=== PATIENT | female | born 1965 | race Caucasian/White ===

== ENCOUNTER 2016-11-15 03:55 | Emergency (ER) | payer OTHER ==
--- NOTE | 2016-11-15 05:27 | ED CLINICAL REPORT ---
Clinical Report - Physicians/Mid Levels [facility] [address] [place] [address] 11/15/2016 3:58 Patient: RANDI RAYA Time Seen: 04:10. Arrived- By private vehicle. Historian- patient. HISTORY OF PRESENT ILLNESS Chief Complaint: COUGH and FEVER. RUNNY NOSE and EAR ACHE. This started several weeks ago and is still present. The illness is described as moderate. The patient has had scant amounts of sputum, a cough, nasal congestion, a subjective fever and a nasal discharge. She has had ear pain. No difficulty breathing, chest discomfort or pain, muscle aches or chills. No sore throat, hoarseness, sinus pressure or sinus drainage. Additional history - The patient has had contact with a sick individual. Similar symptoms previously: Occasionally. Recent medical care: Not recently seen/assessed. REVIEW OF SYSTEMS No headache, eye discomfort, nausea, vomiting or diarrhea. No abdominal pain, hay fever, pedal edema, calf pain or difficulty with urination. No skin rash, enlarged lymph nodes or joint pain. All systems otherwise negative, except as recorded above. PAST HISTORY Problems: Polysubstance abuse. Pyloric Stenosis, Infantile. MRSA Infection. Additional Surgeries: Appendectomy. Cholecystectomy. . Hysterectomy. Medications: Francine-[place] Plus Cold & Flu Oral, prn. Excedrin, prn. Allergies: Zosyn. Definite Moderate (cardiac dysrhymia). SOCIAL HISTORY Smoker- current status unknown. History of drug use: heroin, methamphetamines. No alcohol use. ADDITIONAL NOTES The nursing notes have been reviewed. PHYSICAL EXAM Vital Signs: 11/15/2016 04:03 BP: 126/59. HR: 95. RR: 20. O2 saturation: 97%. Temp: 99.5 F. Pain level now: 5/10. Have been reviewed. Appearance: Alert. No acute distress. (Pt appears mildly uncomfortable.). Eyes: Pupils equal, round and reactive to light. Eyes normal inspection. ENT: Nose normal. Neck: Normal inspection. Neck supple. CVS: Normal heart rate and rhythm. Heart sounds normal. Pulses normal. Respiratory: No respiratory distress. Breath sounds normal. Abdomen: Soft and nontender. Back: Normal inspection. No CVA tenderness. Skin: Skin warm and dry. Normal skin color. No rash. Normal skin turgor. Extremities: Extremities exhibit normal ROM. No lower extremity edema. Neuro: Oriented X 3. No motor deficit. No sensory deficit. LABS, X-RAYS, AND EKG Chest X-ray: Small, patchy infiltrate in the right lower lobe. Consistent with pneumonia. Normal heart size. Mediastinum normal. Great vessels normal. Soft tissues normal. No fracture. No bony lesion present. Views: PA and lateral. Technique: good. The X-rays were independently viewed by me, interpreted by the radiologist and contemporaneously by me and discussed with the radiologist. Prior films were not available for comparison. Laboratory Tests: UA-Culture if indicated: (CONNOR: 11/15/2016 04:42) ( [facility] 11/15/2016 05:07) Final results Test Result Flag Units (Reference) URINE COLOR YELLOW URINE APPEARANCE SL CLOUDY URINE GLUCOSE NEGATIVE (NEGATIVE) URINE BILIRUBIN NEGATIVE (NEGATIVE) URINE KETONE NEGATIVE (NEGATIVE) URINE SPECIFIC GRAVITY 1.025 (1.010-1.030) URINE PH 6.0 (5.0-8.0) URINE PROTEIN NEGATIVE (NEGATIVE) URINE UROBILINOGEN 0.2 EU/dL (0.2-1.0) URINE NITRITE POSITIVE (NEGATIVE) URINE BLOOD NEGATIVE (NEGATIVE) URINE LEUK ESTERASE POSITIVE (NEGATIVE) URINE RBC 0-1 rbc/hpf (0-1) URINE WBC 5-10 wbc/hpf (0-1) URINE EPITHELIAL CELLS 1-3 EPI/hpf (0-5) URINE BACTERIA MANY (4+) (NONE SEEN) URINE COMMENT CULTURE INDICATED URINE CULTURES ARE SET-UP BASED ON THE FOLLOWING CRITERIA:POSITIVE NITRITEPOSITIVE LEUKOCYTE ESTERASEGREATER THAN 10 WHITE BLOOD CELLSMODERATE (2+) OR GREATER BACTERIA Rapid Influenza Screen: (CONNOR: 11/15/2016 04:20) ( [facility] 11/15/2016 05:10) Final results SPECIMEN DESCRIPTION: SWAB Test Result Flag Units (Reference) RAPID INFLUENZA SCREEN DATE: 11/15/16 INFLUENZA A: NEGATIVE SCREEN FOR INFLUENZA A INFLUENZA B: NEGATIVE SCREEN FOR INFLUENZA B . Pulse Oximetry: 11/15/2016 04:03 O2 saturation: 97%. (FIO2 - room air). Interpretation: normal. PROGRESS AND PROCEDURES Course of Care: PT was worked up for her sx, and found to have a small pneumonia and a mild UTI. She was treated with Rocephin and Zithromax for this. Pt was not febrile, and no signs of sepsis were present. Patient counseled in person regarding the patient's stable condition, test results, diagnosis and need for follow-up. Concerns were addressed. Old medical records reviewed. Disposition: Discharged. Condition: stable. CLINICAL IMPRESSION Bacterial pneumonia. Vital signs recorded and reviewed; empiric antibiotics given in the ED. No hypoxemia, respiratory failure or sepsis. Substance abuse problems: abuse of opiates and methamphetamine. Acute urinary tract infection with cystitis associated with indwelling catheter. INSTRUCTIONS Drink plenty of fluids. Warnings: GENERAL WARNINGS: Return or contact your physician immediately if your condition worsens or changes unexpectedly, if not improving as expected, or if other problems arise. Your Current Medications: CONTINUE TAKING THE FOLLOWING MEDICATIONS: Francine-[place] Plus Cold & Flu Oral : prn. Excedrin* : prn. Prescription Medications: Levaquin 750 mg: take 1 tab orally every day for 14 days. No refills. Substitution is permissible. Follow-up: Follow up with your doctor in seven days if not better. Understanding of the discharge instructions verbalized by patient. (Electronically signed by Kyung Morrison MD 11/20/2016 12:05)
--- NOTE | 2016-11-15 05:28 | ED ORDER SUMMARY ---
..... Patient: RANDI RAYA OrderSheet [facility] VisitID: [id number] [address] [place] [address] 51y, F Registration Date/Time: 11/15/2016 ORDER SHEET Weight: 74.8 kg (stated) Allergies: Zosyn GENERAL ORDERS: Rapid Influenza Screen (Nasal Pharyngeal) (swab) Urgent (04:39 11/15/2016 Ben VALENCIA) (Ack 4:41 AMcQuoid ER Tech1) (4:41 AMcQuoid ER Tech1) Chest 2V Urgent (04:39 11/15/2016 Ben VALENCIA) (Ack 4:41 AMcQuoid ER Tech1) (4:54 Ginger) UA-Culture if indicated Urgent (04:39 11/15/2016 Ben VALENCIA) (Ack 4:41 AMcQuoid ER Tech1) (4:45 AMcQuoid ER Tech1) MEDICATION ORDERS: Rocephin IM 2 gm (NOW) (04:53 11/15/2016 Ben VALENCIA) (5:30 Ruben R.N.) Zithromax PO 500 mg (NOW) (04:53 11/15/2016 Ben VALENCIA) (5:29 Ruben R.N.) IV FLUIDS: ORDER SHEET NOTES: [Electronically signed by Deni Garrett R.N. (05:51 11/15/2016)] [Electronically signed by Kyung Morrison MD (12:05 11/20/2016)] [Electronically locked/signed by Deni Garrett R.N. (05:51 11/15/2016)]
--- NOTE | 2016-11-15 05:28 | ED NURSING NOTES ---
Clinical Report - Nurses [facility] [address] [place] [address] 11/15/2016 3:58 [id number] Triage time 04:00 Nov 15 2016. Acuity: LEVEL 3. Chief Complaint: FEVER and "NOT FEELING WELL" and FATIGUE and LACK OF APPETITE (ear aches). Alert. AGNES COMA SCORE: Levan Coma Scale: 15- eyes open spontaneously (4); best verbal response- oriented x 4 (5); best motor response- obeys commands (6). --04:17 Deni Garrett R.N. 04:03 11/15/16. BP: 126/59. HR: 95. RR: 20. O2 saturation: 97% on room air. Temp: 99.5 F (oral). Pain level now: 5/10. Additional comments: (L) leg pain. --04:17 Deni Garrett R.N. Weight: 74.8 kg stated. Height/Length: 67 inches Per Patient. BMI: 25.9. --04:07 Deni Garrett R.N. Medications Excedrin, prn. --04:06 Deni Garrett R.N. Francine-[place] Plus Cold & Flu Oral, prn. --04:06 Deni Garrett R.N. Allergies Zosyn. Definite Moderate (cardiac dysrhymia) --04:07 Deni Garrett R.N. Medication/allergy information source: the patient. --04:17 Deni Garrett R.N. History Arrived by private vehicle. Historian: patient. Accompanied by friend. Primary physician (Irish Mcgee). ( cold symptoms for the last 4 weeks associated with a fever, cough and ear aches.). PAST MEDICAL HX: Immunizations: up-to-date. The patient has had a hysterectomy. SOCIAL HX: Heavy tobacco smoker (cigarette)- less than 1 pack per day. History of drug use: heroin, methamphetamines. (last used yesterday). No alcohol use. No recent travel. The patient was exposed to influenza, chicken pox and MRSA. Has had symptoms of fever, fatigue and cough greater than 2 weeks. ABUSE ASSESSMENT: No report of abuse. FALL RISK ASSESSMENT: Fall risk assessment completed. No fall risk identified. NUTRITIONAL RISK ASSESSMENT: The nutritional risk assessment revealed no deficiencies. FUNCTIONAL ASSESSMENT: Functional assessment: no impairments noted. LEARNING NEEDS ASSESSMENT: The learning needs assessment revealed no barriers. SKIN INTEGRITY ASSESSMENT: Skin integrity risk assessment completed. No skin integrity risk identified. --04:17 Deni Garrett R.N. PROBLEMS: Pyloric Stenosis, Infantile. MRSA Infection. --04:11 Deni Garrett R.N. ADDITIONAL SURGERIES: Appendectomy. Cholecystectomy. . Hysterectomy. --04:11 Deni Garrett R.N. Interventions ID band on patient. To treatment room. --04:17 Deni Garrett R.N. PHYSICAL ASSESSMENT Ambulatory to room. GENERAL / NEURO / PSYCH: Alert. Oriented X 4. HEENT: Mucous membranes are pink. RESPIRATORY: Respirations not labored. Cough. CVS: Pulses within normal limits. GI / : Abdomen soft and nontender and normal bowel sounds. SKIN: Skin intact. Skin is warm and dry. Normal skin turgor. --04:17 Deni Garrett R.N. NURSING PROGRESS NOTES Patient gowned. Reassurance given. Patient identifiers checked. Call light placed in reach. Side rails up x 1. Bed placed in lowest position. Brakes of bed on. Patient ready for evaluation- chart flagged and ED physician notified. --04:17 Deni Garrett R.N. 05:14 11/15/2016 Zithromax PO Tablets 500 mg given. Allergies verified and confirmed 5 rights. --05:29 Deni Garrett R.N. 05:20 11/15/2016 Rocephin (CefTRIAXone Sodium) IM 2 gm given. Given in the right ventral gluteus and left ventral gluteus (split dose). Allergies verified and confirmed 5 rights. --05:30 Deni Garrett R.N. 04:45 11/15/16. BP: 122/65. HR: 86. RR: 16. O2 saturation: 98% on room air. Pain level now: 10. Additional comments: Chest discomfort. --05:44 Deni Garrett R.N. DISPOSITION / DISCHARGE 05:30 11/15/16. BP: 113/58. HR: 83. RR: 18. O2 saturation: 99% on non-rebreather. Temp: 98.8 F. Pain level now: 09/13. Additional comments: Chest discomfort. --05:48 Deni Garrett R.N. Departure time: 0535. --05:48 Deni Garrett R.N. 05:35. Condition at departure: improved. No learning barriers present. Discharge instructions provided and reviewed with the patient. Reviewed medication(s) dosing and course information (prescription given to pt). Reviewed referral to family practice. Reviewed need to stop smoking- provided smoking cessation counseling (encoueaged to stop smoking). Patient verbalized understanding. Written instructions provided in Greek. The patient was discharged by the physician. She was discharged home and accompanied by credit union examiner. She left the Emergency Department ambulatory and via private vehicle. Byproducts Maker driving. FALL RISK ASSESSMENT: Fall risk assessment completed. No fall risk identified. --05:50 Deni Garrett R.N. Locked/Released at 11/15/2016 5:51 by Deni Garrett R.N.
--- NOTE | 2016-11-15 05:28 | ED NURSING NOTES ---
Clinical Report - Nurses [facility] [address] [place] [address] 11/15/2016 3:58 [id number] Triage time 04:00 Nov 15 2016. Acuity: LEVEL 3. Chief Complaint: FEVER and "NOT FEELING WELL" and FATIGUE and LACK OF APPETITE (ear aches). Alert. AGNES COMA SCORE: [place] Coma Scale: 15- eyes open spontaneously (4); best verbal response- oriented x 4 (5); best motor response- obeys commands (6). --04:17 Deni Garrett R.N. 04:03 11/15/16. BP: 126/59. HR: 95. RR: 20. O2 saturation: 97% on room air. Temp: 99.5 F (oral). Pain level now: 5/10. Additional comments: (L) leg pain. --04:17 Deni Garrett R.N. Weight: 74.8 kg stated. Height/Length: 67 inches Per Patient. BMI: 25.9. --04:07 Deni Garrett R.N. Medications Excedrin, prn. --04:06 Deni Garrett R.N. Francine-[place] Plus Cold & Flu Oral, prn. --04:06 Deni Garrett R.N. Allergies Zosyn. Definite Moderate (cardiac dysrhymia) --04:07 Deni Garrett R.N. Medication/allergy information source: the patient. --04:17 Deni Garrett R.N. History Arrived by private vehicle. Historian: patient. Accompanied by friend. Primary physician (Irish Mcgee). ( cold symptoms for the last 4 weeks associated with a fever, cough and ear aches.). PAST MEDICAL HX: Immunizations: up-to-date. The patient has had a hysterectomy. SOCIAL HX: Heavy tobacco smoker (cigarette)- less than 1 pack per day. History of drug use: heroin, methamphetamines. (last used yesterday). No alcohol use. No recent travel. The patient was exposed to influenza, chicken pox and MRSA. Has had symptoms of fever, fatigue and cough greater than 2 weeks. ABUSE ASSESSMENT: No report of abuse. FALL RISK ASSESSMENT: Fall risk assessment completed. No fall risk identified. NUTRITIONAL RISK ASSESSMENT: The nutritional risk assessment revealed no deficiencies. FUNCTIONAL ASSESSMENT: Functional assessment: no impairments noted. LEARNING NEEDS ASSESSMENT: The learning needs assessment revealed no barriers. SKIN INTEGRITY ASSESSMENT: Skin integrity risk assessment completed. No skin integrity risk identified. --04:17 Deni Garrett R.N. PROBLEMS: Pyloric Stenosis, Infantile. MRSA Infection. --04:11 Deni Garrett R.N. ADDITIONAL SURGERIES: Appendectomy. Cholecystectomy. . Hysterectomy. --04:11 Deni Garrett R.N. Interventions ID band on patient. To treatment room. --04:17 Deni Garrett R.N. PHYSICAL ASSESSMENT Ambulatory to room. GENERAL / NEURO / PSYCH: Alert. Oriented X 4. HEENT: Mucous membranes are pink. RESPIRATORY: Respirations not labored. Cough. CVS: Pulses within normal limits. GI / : Abdomen soft and nontender and normal bowel sounds. SKIN: Skin intact. Skin is warm and dry. Normal skin turgor. --04:17 Deni Garrett R.N. NURSING PROGRESS NOTES Patient gowned. Reassurance given. Patient identifiers checked. Call light placed in reach. Side rails up x 1. Bed placed in lowest position. Brakes of bed on. Patient ready for evaluation- chart flagged and ED physician notified. --04:17 Deni Garrett R.N. 05:14 11/15/2016 Zithromax PO Tablets 500 mg given. Allergies verified and confirmed 5 rights. --05:29 Deni Garrett R.N. 05:20 11/15/2016 Rocephin (CefTRIAXone Sodium) IM 2 gm given. Given in the right ventral gluteus and left ventral gluteus (split dose). Allergies verified and confirmed 5 rights. --05:30 Deni Garrett R.N. 04:45 11/15/16. BP: 122/65. HR: 86. RR: 16. O2 saturation: 98% on room air. Pain level now: 10. Additional comments: Chest discomfort. --05:44 Deni Garrett R.N. DISPOSITION / DISCHARGE 05:30 11/15/16. BP: 113/58. HR: 83. RR: 18. O2 saturation: 99% on non-rebreather. Temp: 98.8 F. Pain level now: 09/13. Additional comments: Chest discomfort. --05:48 Deni Garrett R.N. Departure time: 0535. --05:48 Deni Garrett R.N. 05:35. Condition at departure: improved. No learning barriers present. Discharge instructions provided and reviewed with the patient. Reviewed medication(s) dosing and course information (prescription given to pt). Reviewed referral to family practice. Reviewed need to stop smoking- provided smoking cessation counseling (encoueaged to stop smoking). Patient verbalized understanding. Written instructions provided in Qatari. The patient was discharged by the physician. She was discharged home and accompanied by balcony worker. She left the Emergency Department ambulatory and via private vehicle. Well Testing Operator driving. FALL RISK ASSESSMENT: Fall risk assessment completed. No fall risk identified. --05:50 Deni Garrett R.N. Locked/Released at 11/15/2016 5:51 by Deni Garrett R.N.
--- NOTE | 2016-11-15 05:28 | ED ORDER SUMMARY ---
..... Patient: RANDI RAYA OrderSheet [facility] VisitID: [id number] [address] [place] [address] 51y, F Registration Date/Time: 11/15/2016 ORDER SHEET Weight: 74.8 kg (stated) Allergies: Zosyn GENERAL ORDERS: Rapid Influenza Screen (Nasal Pharyngeal) (swab) Urgent (04:39 11/15/2016 Ben VALENCIA) (Ack 4:41 AMcQuoid ER Tech1) (4:41 AMcQuoid ER Tech1) Chest 2V Urgent (04:39 11/15/2016 Ben VALENCIA) (Ack 4:41 AMcQuoid ER Tech1) (4:54 Ginger) UA-Culture if indicated Urgent (04:39 11/15/2016 Ben VALENCIA) (Ack 4:41 AMcQuoid ER Tech1) (4:45 AMcQuoid ER Tech1) MEDICATION ORDERS: Rocephin IM 2 gm (NOW) (04:53 11/15/2016 Ben VALENCIA) (5:30 Ruben R.N.) Zithromax PO 500 mg (NOW) (04:53 11/15/2016 Ben VALENCIA) (5:29 Ruben R.N.) IV FLUIDS: ORDER SHEET NOTES: [Electronically signed by Deni Garrett R.N. (05:51 11/15/2016)] [Electronically signed by Kyung Morrison MD (12:05 11/20/2016)] [Electronically locked/signed by Deni Garrett R.N. (05:51 11/15/2016)]
--- NOTE | 2016-11-15 05:37 | DIAGNOSTIC IMAGING REPORT ---
PROCEDURE: XR CHEST 2 VIEW INDICATION: FEVER TECHNIQUE: PA and lateral view. COMPARISON: None. FINDINGS: Small posterior right lower lobe infiltrate. Left lung is clear. Cardiovascular structures are normal. Bony thorax is unremarkable. IMPRESSION: 1. Right lower lobe pneumonia.
--- NOTE | 2016-11-20 12:06 | ED MAR SUMMARY ---
..... Medication Administration Record [facility] [address] [place] [address] Patient: RANDI RAYA Visit ID: [id number] 51y, F Weight: 74.8 kg Height/Length: 67 in BMI: 25.9 ALLERGIES: Zosyn Given 05:14 11/15/2016 Deni Garrett, R.N. Medication Administered: ZITHROMAX [PO], Dose: 500 mg Tablets PO. Medication Ordered: Zithromax PO 500 mg (NOW). Given 05:20 11/15/2016 Deni Garrett, R.N. Medication Administered: ROCEPHIN [IM] (CEFTRIAXONE SODIUM), Dose: 2 gm IM. Medication Ordered: Rocephin IM 2 gm (NOW).
--- NOTE | 2016-11-20 12:06 | ED MAR SUMMARY ---
..... Medication Administration Record [facility] [address] [place] [address] Patient: RANDI RAYA Visit ID: [id number] 51y, F Weight: 74.8 kg Height/Length: 67 in BMI: 25.9 ALLERGIES: Zosyn Given 05:14 11/15/2016 Deni Garrett, R.N. Medication Administered: ZITHROMAX [PO], Dose: 500 mg Tablets PO. Medication Ordered: Zithromax PO 500 mg (NOW). Given 05:20 11/15/2016 Deni Garrett, R.N. Medication Administered: ROCEPHIN [IM] (CEFTRIAXONE SODIUM), Dose: 2 gm IM. Medication Ordered: Rocephin IM 2 gm (NOW).
--- NOTE | 2016-11-20 12:06 | ED DISCHARGE INSTRUCTIONS ---
Patient: RANDI RAYA General Instructions [facility] VisitID: [id number] [place] [address] 51y, F Registration Date/Time: 11/15/2016 Bacterial pneumonia. Vital signs recorded and reviewed; empiric antibiotics given in the ED. No hypoxemia, respiratory failure or sepsis. Substance abuse problems: abuse of opiates and methamphetamine. Acute urinary tract infection with cystitis associated with indwelling catheter. INSTRUCTIONS Drink plenty of fluids. Warnings: GENERAL WARNINGS: Return or contact your physician immediately if your condition worsens or changes unexpectedly, if not improving as expected, or if other problems arise. Your Current Medications: CONTINUE TAKING THE FOLLOWING MEDICATIONS: Francine-[place] Plus Cold & Flu Oral : prn. Excedrin* : prn. Prescription Medications: Levaquin 750 mg: take 1 tab orally every day for 14 days. No refills. Substitution is permissible. Follow-up: Follow up with your doctor in seven days if not better. Understanding of the discharge instructions verbalized by patient. ADDITIONAL INFORMATION Pneumonia (Adult) Pneumonia is an infection deep within the lung, in the small air sacs (alveoli). It may be due to a virus or bacteria and is usually treated with an antibiotic. Severe cases require treatment in the hospital. Milder cases can be treated at home. Symptoms usually start to improve during the first2 days of treatment. Home Care: Rest at home for the first 23 days or until you feel stronger. When resuming activity, dont let yourself become overly tired. Avoid exposure to cigarette smoke (yours or others). You may use acetaminophen (Tylenol) or ibuprofen (Motrin, Advil) to control fever or pain, unless another medicine was prescribed. [NOTE: If you have chronic liver or kidney disease or ever had a stomach ulcer or GI bleeding, talk with your doctor before using these medicines.] (Aspirin should never be used in anyone under 18 years of age who is ill with a fever. It may cause severe liver damage.) Your appetite may be poor so a light diet is fine. Keep well hydrated by drinking 68 glasses of fluids per day (water, sport drinks such as Gatorade, sodas without caffeine, juices, tea, soup, etc.). This will help loosen secretions in the lung, making it easier for you to cough up the phlegm (sputum). If you also have heart or kidney disease, check with your doctor before you drink extra amounts of fluids. Finish all antibiotic medicine prescribed, even if you are feeling better after a few days. Follow Up with your doctor in the next 23 days (or as advised) to be sure you are responding properly to the medicine. [NOTE: If you are age 65 or older, or if you have chronic lung disease (asthma, emphysema or COPD), we recommendthe pneumococcal vaccination and a yearlyinfluenzavaccination(flu-shot) every . Ask your doctor about this.] Get Prompt Medical Attention if any of the following occur: Not getting better within the first 48 hours of treatment Increasing shortness of breath or rapid breathing (over 25 breaths/minute) Coughing up blood or increasing chest pain with breathing Fever of 100.4F (38C) oral or higher, not better with fever medication Increasing weakness, dizziness or fainting Increasing thirst or dry mouth Sinus pain, headache or a stiff neck Chest pain not caused by coughing Bladder Infection,Female (Adult) A bladder infection ("cystitis" or "UTI") usually causes a constant urge to urinate and a burning when passing urine. Urine may be cloudy, smelly or dark. There may be pain in the lower abdomen. A bladder infection occurs when bacteria from the vaginal area enter the bladder opening (urethra). This can occur from sexual intercourse, wearing tight clothing, dehydration and other factors. Home Care: Drink lots of fluids (at least 6-8 glasses a day, unless you must restrict fluids for other medical reasons). This will force the medicine into your urinary system and flush the bacteria out of your body. Avoid sexual intercourse until your symptoms are gone. Avoid caffeine, alcohol and spicy foods. These can irritate the bladder. A bladder infection is treated with antibiotics. You may also be given Pyridium (generic = phenazopyridine) to reduce the burning sensation. This medicine will cause your urine to become a bright orange color. The orange urine may stain clothing. You may wear a pad or panty-liner to protect clothing. Preventing Future Infections: Always wipe from front to back after a bowel movement. Keep the genital area clean and dry. Drink plenty of fluids each day to avoid dehydration. Both sexual partners should wash before intercourse. Urinate right after intercourse to flush out the bladder. Wear cotton underwear and cotton-lined panty hose; avoid tight-fitting pants. If you are on control pills and are having frequent bladder infections, discuss with your doctor. Follow Up: Return to this facility or see your doctor if ALL symptoms are not gone after three days of treatment. Get Prompt Medical Attention if any of the following occur: Fever of 100.4F (38C) or higher, or as directed by your healthcare provider No improvement by the third day of treatment Increasing back or abdominal pain Repeated vomiting; unable to keep medicine down Weakness, dizziness or fainting Vaginal discharge Pain, redness or swelling in the labia (outer vaginal area) You have been given the following additional information: Pneumonia (Adult) Bladder Infection, Female (Adult) (Electronically signed by Kyung Morrison MD 11/20/2016 12:05)
--- NOTE | 2016-11-20 12:06 | ED MED RECONCILIATION SUMMARY ---
Patient: RANDI RAYA Medication Reconciliation Report [facility] VisitID: [id number] [address] [place] [address] 51y, F Registration Date/Time: 11/15/2016 Weight: 74.8 kg Height/Length: 67 in. BMI: 25.9 ALLERGIES: Zosyn The patient's Home Medications are listed below: CONTINUE TAKING THE FOLLOWING MEDICATIONS: Francine-[place] Plus Cold & Flu Oral, prn Excedrin, prn The source(s) of the original Home Medication information: patient The following Medications were given to the patient in the Emergency Department: Zithromax [PO] PO 500 mg, administered: 11/15/2016 5:14:00 AM Rocephin [IM] IM 2 gm, administered: 11/15/2016 5:20:00 AM The following Medications were prescribed to the patient: Levaquin 750 mg: take 1 tab orally every day for 14 days. No refills. Substitution is permissible. -- Kyung Morrison MD
--- NOTE | 2016-11-20 12:06 | ED MED RECONCILIATION SUMMARY ---
Patient: RANDI RAYA Medication Reconciliation Report [facility] VisitID: [id number] [address] [place] [address] 51y, F Registration Date/Time: 11/15/2016 Weight: 74.8 kg Height/Length: 67 in. BMI: 25.9 ALLERGIES: Zosyn The patient's Home Medications are listed below: CONTINUE TAKING THE FOLLOWING MEDICATIONS: Francine-[place] Plus Cold & Flu Oral, prn Excedrin, prn The source(s) of the original Home Medication information: patient The following Medications were given to the patient in the Emergency Department: Zithromax [PO] PO 500 mg, administered: 11/15/2016 5:14:00 AM Rocephin [IM] IM 2 gm, administered: 11/15/2016 5:20:00 AM The following Medications were prescribed to the patient: Levaquin 750 mg: take 1 tab orally every day for 14 days. No refills. Substitution is permissible. -- Kyung Morrison MD
== END 2016-11-15 05:35 | disposition home or self-care (01) ==
LOC: ED SRH 03:55
DX: J15.9 Unspecified bacterial pneumonia (principal); T83.518A Infection and inflammatory reaction due to other urinary catheter, initial encounter; N30.00 Acute cystitis without hematuria; F11.10 Opioid abuse, uncomplicated; F15.10 Other stimulant abuse, uncomplicated; Z88.8 Allergy status to other drugs, medicaments and biological substances
CPT/HCPCS: 90004; 90148; 90469; 91400